=== PATIENT | male | born 1980 | race American Indian/Alaskan Native ===

== ENCOUNTER 2017-04-05 09:04 | Emergency (ER) | payer BC ==
--- NOTE | 2017-04-05 11:36 | Emergency Department Report ---
HPI - General Chief Complaint: Eye Problems Time Seen by Provider: 04/05/17 11:18 - HPI HPI: Room 7 The patient is a 37-year-old male presenting with a chief complaint of subconjunctival hemorrhages. Patient states she was in his usual state of health until after consuming an alcoholic beverage 3 days ago. The patient states that night he developed nausea and vomiting. Following day he began to notice subconjunctival hemorrhage in both eyes which began to propagate. Patient denies ocular pain. Patient denies eye trauma. Patient denies blurred vision. Patient denies diarrhea or fever. Patient is currently asymptomatic Location: Bilateral eyes Duration: [see above] Quality: Painless Severity: Moderate Modifying factors: [see above] Context: [see above] Mode of transportation: Unknown ED Past Medical Hx - Past Medical History Previous Medical History?: No - Surgical History Past Surgical History?: No - Family History Family history: no significant - Social History Smoking Status: Never Smoker Substance Use Type: None (denies illicit drug use), Alcohol (occasional) - Medications Home Medications: Home Medications Medication Instructions Recorded Confirmed Last Taken Type Promethazine [Phenergan TAB] 25 mg PO Q6HR PRN #20 tab 04/05/17 Unknown Rx ED Review of Systems ROS: Stated complaint: RED EYE Other details as noted in HPI Comment: All other systems reviewed and negative Constitutional: denies: chills, fever Eyes: other (subconjunctival hemorrhages bilaterally). denies: eye pain, vision change ENT: denies: ear pain, throat pain Respiratory: denies: cough, shortness of breath, wheezing Cardiovascular: denies: chest pain, palpitations Endocrine: no symptoms reported Gastrointestinal: nausea, vomiting. denies: abdominal pain, diarrhea Genitourinary: denies: urgency, dysuria Musculoskeletal: denies: back pain, joint swelling, arthralgia Skin: denies: rash, lesions Neurological: denies: headache, weakness, paresthesias Psychiatric: denies: anxiety, depression Hematological/Lymphatic: denies: easy bleeding, easy bruising Physical Exam - Physical Exam Vital Signs: Vital Signs 04/05/17 09:15 Temperature 98.2 F Pulse Rate 66 Respiratory 17 Rate Blood Pressure 156/114 O2 Sat by Pulse 98 Oximetry Physical Exam: GENERAL: The patient is well-developed well-nourished male sitting in chair not appearing to be in acute distress. [] HEENT: Normocephalic. Atraumatic. Extraocular motions are intact. Patient has moist mucous membranes. Large bilateral subconjunctival hemorrhages. No hyphema, no hypopyon. Vision 20/20 throughout NECK: Supple. No meningitic signs are noted. There is no adenopathy noted. CHEST/LUNGS: Clear to auscultation. There is no respiratory distress noted. HEART/CARDIOVASCULAR: Regular. There is no tachycardia. There is no gallop rub or murmur. ABDOMEN: Abdomen is soft, nontender. Patient has normal bowel sounds. There is no abdominal distention. SKIN: There is no rash. There is no edema. There is no diaphoresis. and gait. MUSCULOSKELETAL: There is no evidence of acute injury. ED Course Vital Signs 04/05/17 09:15 Temperature 98.2 F Pulse Rate 66 Respiratory 17 Rate Blood Pressure 156/114 O2 Sat by Pulse 98 Oximetry ED Medical Decision Making - Differential Diagnosis subconjunctival hemorrhages Critical care attestation.: If time is entered above; I have spent that time in minutes in the direct care of this critically ill patient, excluding procedure time. ED Disposition Clinical Impression: Subconjunctival hemorrhage of both eyes Disposition: DC-01 TO HOME OR SELFCARE Is pt being admited?: No Does the pt Need Aspirin: No Condition: Stable Instructions: Subconjunctival Hemorrhage (ED) Additional Instructions: Return to the emergency department immediately should you develop worsening symptoms, fever, inability to tolerate food or liquid or any other concerns. Prescriptions: Promethazine [Phenergan TAB] 25 mg PO Q6HR PRN #20 tab PRN Reason: Nausea Referrals: PRIMARY MD JORDI [Primary Care Provider] - 3-5 Days JAYANT ORELLANA MD [Staff Physician] - 3-5 Days (Dr. Orellana is an senior game advisor. Please follow up with him for further evaluation) Time of Disposition: 11:37
[2017-04-05 12:05] VITALS: BP 143/98
== END 2017-04-05 12:05 | disposition home or self-care (01) ==
LOC: ED 09:04
DX: H11.33 Conjunctival hemorrhage, bilateral (principal)
CPT/HCPCS: 99282